=== PATIENT | female | born 2000 | race Caucasian/White ===

== ENCOUNTER 2022-07-23 14:56 | Emergency (ER) | payer OTHER, SELFPAY ==
[2022-07-23 15:16] VITALS: BP 114/73; PULSE 69; RESP 16; TEMP 36.9; O2SAT 100
--- NOTE | 2022-07-23 15:52 | ED.FEMALEGU ---
HPI - Female Genitourinary General Chief complaint: Urogenital-Female Stated complaint: BLOOD IN URINE Time Seen by Provider: 07/23/22 15:52 Source: patient, RN notes reviewed and old records reviewed Mode of arrival: ambulatory Limitations: no limitations History of Present Illness HPI Narrative: 22 year old female presents to express care with complaints of noting blood in her urine noted today. She denies any burning or pain with urination or any foul odor to urine. Patient reports that she id experience some lower abdominal discomfort 2 evenings ago which resolved on its own. Patient denies any known fevers, chills or sweats, denies any pain to her back or CVA tnderness. Patient denies any vaginal itching or discharge or any any concern for STD exposure. Patient does verbalize past UTI. MD elicited complaint: other (blood in urine) Onset (ago): day(s) (today) Date of Last Menstrual Period: 07/10/22 Related Data Allergies Allergy/AdvReac Type Severity Reaction Status Date / Time No Known Allergies Allergy Verified 07/23/22 15:12 Review of Systems Review of Systems: CONSTITUTIONAL: Denies fever, chills, or sweats. CARDIOVASCULAR: Denies chest pain, palpitations, or edema. RESPIRATORY: Denies cough or dyspnea. GASTROINTESTINAL: Denies abdominal pain, nausea, vomiting, or diarrhea. GENITOURINARY: Reports no dysuria, frequency, urgency. Denies flank pain positiv for hematuria. SKIN: Denies rash or itching MUSCULOSKELETAL: Denies back pain or myalgia. Denies CVA tenderness NEUROLOGIC: Denies headache All systems reviewed & are unremarkable except as noted in HPI and below PMFSH Past Medical History Medical History (Updated 07/25/22 @ 08:50 by Claudia Hill NP) Constipation Social History Social History (Updated 07/25/22 @ 08:50 by Claudia Hill NP) Smoking status: Never smoker Alcohol intake: current Alcohol use details: rare social Substance use: never Substance use type: does not use Occupation/Education: student Gender identity (if verbalized by the patient): Female Comments At time of signature, agree with nursing past medical, surgical, social and family history. There is no relevant family history pertinent to the presenting complaint Exam Narrative: GENERAL: Well-appearing, well-nourished, and in no acute distress. HEAD: Normocephalic, atraumatic. NECK: Supple. no lymphadenopathy CHEST: Clear to auscultation. No respiratory distress. SAO2 100% on room air HEART: Regular rate and rhythm. No murmur heard. Normal peripheral pulses. ABDOMEN: Soft, nontender, nondistended, normal active bowel sounds. No CVA tenderness, blood noted in urine, no dysuria EXTREMITIES: Normal range of motion. No edema. SKIN: Warm, dry, no rash. NEURO: No focal deficits. Alert and oriented x3. Course Course Emergency Course: Patient is aware of diagnosis, understands and agrees to treatment plan.? Anticipatory guidance given.? Patient agrees to follow-up as directed and is aware of reasons to seek care at the emergency department. Portions of this record may have been created with voice recognition software Level of Care: Express Care Visit Vital Signs Vital signs: Vital Signs Temperature 36.9 C 07/23/22 15:16 Pulse Rate 69 07/23/22 15:16 Respiratory Rate 16 07/23/22 15:16 Blood Pressure 114/73 07/23/22 15:16 Pulse Oximetry 100 07/23/22 15:16 Temperature 36.9 C 07/23/22 15:16 Pulse Rate 69 07/23/22 15:16 Respiratory Rate 16 07/23/22 15:16 Blood Pressure 114/73 07/23/22 15:16 Pulse Oximetry 100 07/23/22 15:16 MDM - Female Genitourinary MDM Narrative Medical decision making narrative: Exam findings and UA show no acute concerns or changes; patient is non-toxic appearing and is in no distress.? Patient is appropriate for outpatient treatment and follow-up. Differential Diagnosis Differential diagnosis: Likely urinary tract infection, cystitis and other (he
== END 2022-07-23 16:14 | disposition home or self-care (01) ==
PROVIDERS: Emergency Provider Registered Nurse
DX: N39.0 Urinary tract infection, site not specified (principal)
CPT/HCPCS: 81003; 87086; 99213; G0463